=== PATIENT | female | born 1955 ===

== ENCOUNTER 2016-06-09 10:39 | Day surgery (SDC) | payer OTHER ==
[2016-06-09] MEDS ORDERED: Propofol 10 mg/ml Inj (20 ML) ONE (11:45)
--- NOTE | 2016-06-09 11:46 | CP.SDSHP ---
Same Day Surgery [facility] & [facility] - Previous Medical/Surgical History Cardiac: Hypertension Endocrine/Metabolic: Diabetes - Allergies Allergies: Allergies No Known Allergies Allergy (Verified 06/09/16 11:21) - Date & Time Date: 06/09/16 Time: 11:46 Short Stay Discharge - Short Stay Discharge Admitting Diagnosis/Reason for Visit: SCREENING Disposition: HOME/ ROUTINE
[2016-06-09 12:20] VITALS: TEMP 97.7; O2SAT 98
[2016-06-09 13:19] VITALS: BP 136/76; PULSE 54; RESP 14
== END 2016-06-09 13:10 | disposition home or self-care (01) ==
LOC: C.ENDO 10:39
PROVIDERS: ATTEND Colon & Rectal Surgery
DX: Z12.11 Encounter for screening for malignant neoplasm of colon (principal); K64.8 Other hemorrhoids
CPT/HCPCS: 45378; 82948; J2704; J3010

== ENCOUNTER 2017-07-24 07:33 | Day surgery (SDC) | payer OTHER ==
[2017-07-24 08:29] VITALS: BMI 27.7
[2017-07-24 08:45] VITALS: TEMP 97.5
--- NOTE | 2017-07-24 10:08 | CP.SDSHP ---
Same Day Surgery [facility] & P - History Proposed Procedure: egd Pre-Op Diagnosis: see notes - Previous Medical/Surgical History Endocrine/Metabolic: Diabetes Misc: Other Pain: 4.Moderate Pain - Allergies Allergies: Allergies No Known Allergies Allergy (Verified 07/24/17 08:29) - Physical Exam General Appearance: n Vital Signs: Vital Signs 07/24/17 08:05 Temperature 97.5 F L Pulse Rate 75 Respiratory 19 Rate Blood Pressure 118/70 Mental Status: Alert & Oriented x3 Heart: Other Lungs: WNL GI: Other - {Optional Preform as Required} Breast: WNL Abdomen: Other Rectal: Other Integument: WNL : WNL Ortho: Other ENT: WNL - Impression Pt. Evaluated Today:Candidate for Anesthesia & Procedure: Yes - Date & Time Time: 10:08 Short Stay Discharge - Short Stay Discharge Admitting Diagnosis/Reason for Visit: ANEMIA Disposition: HOME/ ROUTINE
[2017-07-24] MEDS ORDERED: Belladonna-Phenobarbital PO STA (10:09)
[2017-07-24] MEDS ORDERED: Midazolam 2 MG/2 ML VIAL ONE (10:15)
[2017-07-24] MEDS ORDERED: Propofol 10 mg/ml Inj (20 ML) ONE (10:15)
[2017-07-24 10:54] VITALS: O2SAT 100
[2017-07-24 11:11] VITALS: PULSE 58
[2017-07-24 12:47] VITALS: BP 113/68; RESP 19
== END 2017-07-24 11:41 | disposition home or self-care (01) ==
LOC: C.ENDO 07:33
PROVIDERS: ATTEND Specialist
DX: K29.70 Gastritis, unspecified, without bleeding (principal); D64.9 Anemia, unspecified; K25.9 Gastric ulcer, unspecified as acute or chronic, without hemorrhage or perforation; E11.9 Type 2 diabetes mellitus without complications; K44.9 Diaphragmatic hernia without obstruction or gangrene
CPT/HCPCS: 43239; 82948; 88305; 88342; J2001; J2250; J2704